=== PATIENT | female | born 1980 | race African-American/Black ===

== ENCOUNTER 2020-11-14 10:59 | Emergency (ER) | payer OTHER ==
[2020-11-14 11:05] VITALS: BP 120/83; PULSE 82; TEMP 98.8; BMI 28.1
== END 2020-11-14 11:36 | disposition home or self-care (01) ==
LOC: JERFT 10:59
DX: M79.672 Pain in left foot (principal)
CPT/HCPCS: 99283-25

== ENCOUNTER 2022-12-22 17:18 | Emergency (ER) | payer OTHER ==
[2022-12-22 17:33] VITALS: BP 117/75; PULSE 77; RESP 18; TEMP 98.2; BMI 31.6
[2022-12-22] MEDS ORDERED: KETOROLAC TROMETHAMINE 30 MG/1 ML VIAL IM ONE (19:30)
[2022-12-22] MEDS ORDERED: KETOROLAC TROMETHAMINE 30 MG/1 ML VIAL ONE (19:32)
== END 2022-12-22 19:41 | disposition home or self-care (01) ==
LOC: JERFT 17:18
PROC: 3E023GC Introduction of Other Therapeutic Substance into Muscle, Percutaneous Approach (ICD-10-PCS; principal; 2022-12-22)
DX: M25.461 Effusion, right knee (principal); M25.561 Pain in right knee
CPT/HCPCS: 73562-TC-RT-FY; 84703; 99284-25